=== PATIENT | male | born 2005 | race Caucasian/White ===

== ENCOUNTER 2025-07-06 20:47 | Emergency (ER) | payer OTHER, SELFPAY ==
--- NOTE | ~2025-07-06 | XR_ITS ---
CLINICAL HISTORY: Cough 2 view chest x-ray. Comparison: None provided. Findings: No consolidation, pneumothorax, or effusion. Heart size normal. No acute fracture visualized. Impression: 1. No acute cardiopulmonary process. No focal pulmonary consolidation. This document has been electronically signed by: Howard Ibanez MD on 07/06/2025 21:44:57
--- NOTE | 2025-07-06 20:56 | ED_ITS ---
HPI - Fever General Chief Complaint: Upper Respiratory Symptoms Stated Complaint: FEVER COUGH ASTHMA CHEST TIGHTNESS DIZZY Time Seen by Provider: 07/06/25 21:50 History of Present Illness ED Provider: Yue READ Narrative: The patient is a 19-year-old male who has been sick since yesterday with a fever, headache, cough, and chest tightness. He felt quite unwell in his mother brought him to the hospital today for evaluation. Related Data Previous Rx's ?Medication ?Instructions ?Recorded ibuprofen 400 mg tablet 400 mg PO Q6H PRN pain #14 t abs 07/06/25 Allergies Allergy/AdvReac Type Severity Reaction Status Date / Time No Known Allergies Allergy Verified 07/06/25 21:06 Review of Systems Review of Systems: Yes all other systems are reviewed and are negative [facility] Social History Social History Advance Directives: No Advance Directives Information Provided: No Do you have a plan to hurt others: No Plan Physical Exam Vital Signs: Vital Signs: Last Vital Signs Temp 100.9 F H 07/06/25 22:52 Pulse 116 H 07/06/25 22:52 Resp 20 07/06/25 22:52 BP 135/75 07/06/25 22:52 Pulse Ox 97 07/06/25 22:52 O2 Del Method Room Air 07/06/25 22:52 BMI result Body Mass Index 36.0 Const: Other: the patient is awake and alert with a normal mental status. He looks mildly unwell but not acutely ill HEENT: Other: The face is symmetrical. Mucous membranes moist. posterior pharynx normal. Eyes: Other: Pupils are round equal, conjunctivae are clear, extraocular movements intact Neck: Neck: Yes normal visual inspection, Yes full ROM and Yes no lymphadenopathy Resp: Effort & Inspection: normal respiratory effort Auscultation: clear to auscultation bilaterally Cardio: Rate: tachycardic Rhythm: regular rhythm Heart sounds: S1 normal heart sound present and S2 normal heart sound present GI: Other: Abdomen soft and nontender Skin: Other: no rash Neuro: Other: the patient was awake and alert with a normal mental status. Cranial nerves are grossly intact. He moves his extremities normally and appropriately. Extrem: Other: No peripheral edema Course Course Course Narrative: This is a Rapid Medical Examination (RME) performed by Lida Becker NP in triage. Full assessment, plan deferred to bi developer. 19-year-old male patient hx of asthma, 4 treatments total, 2 last night, 2 today. + Cough, non-productive. Tmax 101.5*F. Last dose of meds around 4 PM-- Tylenol. No CP. No abdominal pain, n/v/d/c. Generalized body ache. Plan: CXR, Viral swab. Medications Administered Discontinued Medications Generic Name Dose Route Start Last Admin Trade Name Freq PRN Reason Stop Dose Admin Acetaminophen 975 mg 07/06/25 21:51 07/06/25 22:03 Acetaminophen 325 Mg Tablet PO 07/06/25 21:52 975 mg ONCE ONE Administration Ibuprofen 400 mg 07/06/25 21:51 07/06/25 22:03 Ibuprofen 400 Mg Tablet PO 07/06/25 21:52 400 mg ONCE ONE Administration Medical Decision Making Medical Decision Making [facility] Narrative: the patient is a 19-year-old male who presents with a 1 day history of feeling unwell with symptoms of a headache, body aches, cough, runny nose, and chest tightness. He has tested positive for influenza A. Clinically the patient has a presentation consistent with influenza. He was given ibuprofen and acetaminophen. Since he is otherwise young and healthy I do not think oseltamivirwould offer much benefit. I have sent a prescription for ibuprofen. Encourage fluids. Stay in touch with the automotive window tinter. Return if worse. Lab Data Labs: Lab Results 07/06/25 Range/Units 21:23 Influenza Type A (PCR) POSITIVE A (Negative) Influenza Type B (PCR) NEGATIVE (Negative) RSV RNA Qual (PCR) NEGATIVE (Negative) SARS-CoV-2 RNA (RT-PCR) NEGATIVE (Negative) Discharge Plan Discharge Clinical Impression: Influenza A Patient Disposition: Home, Self-Care Instructions: Influenza (ED) Additional Instructions: your nasal swab has test is positive for influenza A. You have tested negative for COVID and RSV. Your chest x-ray is clear. No pneumonia. You seem to have the flu. I have sent a prescription for ibuprofen that you may use every 6 hours as needed for discomfort and fever. You may also use [id number] acetaminophen in addition to the ibuprofen. Drink a lot of fluids. Return to the emergency room if significantly worse. Prescriptions: New ibuprofen 400 mg tablet 400 mg PO Q6H PRN (Reason: pain) Qty: 14 0RF Referrals: Wale Crabtree MD [Primary Care Provider, Pediatrics] Interventions: ED Discharge Assessment Last Done: 07/06/25 22:52 Discharge Date/Time: 07/06/25 22:53 Print Language: Telugu
[2025-07-06 21:03] VITALS: BP 147/88; PULSE 119; RESP 18; TEMP 38.2; O2SAT 99; BMI 36.0
--- OUTSIDE RECORDS SUMMARY | 2025-07-06 21:37 | XMS_ITS | Clinical Summary ---
Author Organization [facility] it Address [address] [place] [address] Care Team Providers Care Manager Pet Name Role Phone Unavailable Primary Care Provider Unavailabl e Social History Tobacco Use Types Packs/Day Years Used Date Smoking Tobacco: Never Assessed Sex and Gender Information Value Date Recorded Sex Assigned at Not on file Legal Sex Male 2:34 PM EST Gender Identity Not on file Sexual Orientation Not on file Plan of Treatment Health Maintenance Due Date Last Done Comments HPV Vaccines (2 - Male 2-dos e series) 05/19/2017 11/16/2016 Varicella Vaccines (1 of 2 - 13+ 2-dose series) 2018 Meningococcal B Vaccine (1 o f 2 - Standard) 2021 Annual Well Child Visit (3-2 1 years old) 06/15/2022 HIV Screening 06/15/2022 Hepatitis C Screening 06/15/2022 Social Influencers of Health Screening 06/15/2022 Depression Screening 07/17/2024 Hepatitis B Vaccines (1 of 3 - 19+ 3-dose series) 2024 COVID-19 Vaccine (1 - 2024-2 6 season) 2025 Influenza Vaccine (#1) 2025 8, 08/13/2015 DTaP,Tdap,and Td Vaccines (2 - Td or Tdap) 11/16/2026 11/16/2016 RSV Immunization Adult Patients (1 - 1-dose 75+ series) 2080 Meningococcal ACWY Vaccine Aged Out 11/16/2016 N o longer eligible based on patient's age to complete this topic HIB Vaccines Aged Out No longer eligi ble based on patient's age to complete this topic Hepatitis A Vaccines Aged Out No long er eligible based on patient's age to complete this topic IPV Vaccines Aged Out No longer eligi ble based on patient's age to complete this topic MMR Vaccines Aged Out No longer eligi ble based on patient's age to complete this topic Pneumococcal Vaccine: Pediatrics (0 to 5 Years) and At-Risk Patients (6 to 49 Years) Aged Out No longer eligible b ased on patient's age to complete this topic RSV Immunization Patients Under 20 months Aged Out No longer eligible b ased on patient's age to complete this topic
[2025-07-06 22:08] LABS: Resp Syncy Virus RNA Qual PCR NEGATIVE (Negative); SARS COV2 PCR INHOUSE NEGATIVE (Negative)
[2025-07-06 22:52] VITALS: BP 135/75; PULSE 116; RESP 20; TEMP 38.3; O2SAT 97
== END 2025-07-06 22:53 | disposition home or self-care (01) ==
PROVIDERS: Nurse Practitioner; Emergency Provider Emergency Medicine; PCP Pediatrics
DX: J10.1 Influenza due to other identified influenza virus with other respiratory manifestations (principal); R05.9 Cough, unspecified; Z03.818 Encounter for observation for suspected exposure to other biological agents ruled out
CPT/HCPCS: 71046; 87637; 99283

== ENCOUNTER → 2025-07-06 21:05 | Outpatient (BNV) | payer OTHER, SELFPAY | PROVIDERS: Emergency Provider Emergency Medicine; PCP Pediatrics; Visit Provider Radiology Diagnostic Radiology | DX: R05.9 Cough, unspecified (principal) | CPT/HCPCS: 71046 ==